=== PATIENT | male | born 1975 | race Caucasian/White ===

== ENCOUNTER 2019-06-26 20:07 | Emergency (ER) | payer BC ==
[2019-06-26] MEDS ORDERED: LORAZEPAM 2 MG/ML VIAL IV ONE (20:12)
[2019-06-26] MEDS ORDERED: 0.9 % SODIUM CHLORIDE 1000ML 1,000 ML IV SCH (20:15)
[2019-06-26 20:19] LABS: ABSOLUTE NEUTROPHIL COUNT 10.72; BASO % 0.3 % (0-6); EOS % 0.5 % (0-6); GRAN % 74.2 % (47-80); HEMATOCRIT 45.7 % (42.0-52.0); LYMPH % 16.5 % (16-45); MEAN CELL VOLUME 98.9 fl (81-97); MEAN CORPUSCULAR HEMOGLOBIN 32.5 pg (27-33); MEAN CORPUSCULAR HGB CONC 32.8 g/dl (32-36); MEAN PLATELET VOLUME 9.8 fl (7.4-10.4); MONO % 8.5 % (0-9); PLATELET COUNT 310 K/uL (130-400); RED BLOOD COUNT 4.62 M/uL (4.40-5.70); RED CELL DISTRIBUTION WIDTH 12.7 % (11.5-14.5); WHITE BLOOD COUNT W/O DIFF 14.5 K/uL (4.2-12.2)
--- NOTE | 2019-06-26 20:21 | Emergency Department Record ---
History of Present Illness - General Chief Complaint: Seizures Stated Complaint: SEIZURE Time Seen by Provider: 06/26/19 20:11 Source: Patient Mode of Arrival: Ambulatory Limitations: No limitations - History of Present Illness Initial Comments: 44 yo male presents to ED for evaluation following a witnessed seizure this evening. Patient's reports that the patient came home after work, ate several deserts (reports that he had not eaten for most of the day), sat down in a chair and while watching television began to "shake" with repetitive motions of all 4 limbs, eyes rolled back, and drooling was noted. Patient's reports confusion after the event, patient ran out of the home "looking for me". Patient denies history of seizures, but does report use of Wellbutrin for depression and anxiety symptoms. Patient reports he may have taken a 2nd dose of his Wellbutrin by accident this evening as well. MD Complaint: Seizure Onset/Timin -: Minutes(s) Description of Episode: Post-event confusion Witnessed: Yes - by bystander Seizure History: None Place: Home Possible Precipitating Event: Medication Associated Symptoms: Denies other symptoms Treatments Prior to Arrival: None - Dorcas Coma Scale Eye Response: (4) Open spontaneously Motor Response: (6) Obeys commands Verbal Response: (5) Oriented Mears Total: 15 - Related Data Home Medications Medication Instructions Recorded Confirmed Last Taken Bupropion HCl [Bupropion Xl] 1 tab PO DAILY 06/26/19 06/26/19 Unknown Buspirone HCl [Buspar] 2 tab PO TID PRN 06/26/19 06/26/19 Unknown Allergies Allergy/AdvReac Type Severity Reaction Status Date / Time Sulfa (Sulfonamide Allergy HIVES Verified 06/26/19 20:22 Antibiotics) Review of Systems Constitutional: Denies: Chills, Fever, Malaise, Night sweats Eyes: Denies: Eye discharge, Eye pain ENT: Denies: Congestion, Ear pain, Epistaxis Respiratory: Denies: Cough, Dyspnea Cardiovascular: Denies: Chest pain, Dyspnea on exertion Endocrine: Denies: Fatigue, Heat or cold intolerance Gastrointestinal: Denies: Abdominal pain, Nausea, Vomiting Genitourinary: Denies: Incontinence, Retention Musculoskeletal: Denies: Arthralgia, Back pain Skin: Denies: Bruising, Change in color Neurological: Reports: Seizure. Denies: Abnormal gait, Confusion, Headache Psychiatric: Reports: Anxiety Hematological/Lymphatic: Denies: Anemia, Blood Clots Physical Exam - General General Appearance: Alert, Oriented x3, Cooperative, Mild distress, Anxious Limitations: No limitations - Head Head exam: Atraumatic, Normocephalic, Normal inspection Head exam detail: negative: Abrasion, Contusion, Onwak's sign, General tenderness, Hematoma, Laceration - Eye Eye exam: Normal appearance. negative: Conjunctival injection, Periorbital swelling, Periorbital tenderness, Scleral icterus - ENT Ear exam: negative: Auricular hematoma, Auricular trauma Nasal Exam: negative: Active bleeding, Discharge, Dried blood, Foreign body Mouth exam: negative: Drooling, Laceration, Muffled voice, Tongue elevation - Neck Neck exam: Normal inspection. negative: Meningismus, Tenderness - Respiratory Respiratory exam: Normal lung sounds bilaterally. negative: Rales, Respiratory distress, Rhonchi, Stridor - Cardiovascular Cardiovascular Exam: Regular rate, Normal rhythm, Normal heart sounds - GI/Abdominal GI/Abdominal exam: Soft. negative: Rebound, Rigid, Tenderness - Rectal Rectal exam: Deferred - exam: Deferred - Extremities Extremities exam: Normal inspection. negative: Pedal edema, Tenderness - Back Back exam: Denies: CVA tenderness (R), CVA tenderness (L) - Neurological Neurological exam: Alert, Normal gait, Oriented X3 - Psychiatric Psychiatric exam: Normal affect, Normal mood - Skin Skin exam: Normal color. negative: Abrasion Type of lesion: negative: abrasion Course Vital Signs 06/26/19 20:12 Temperature 97.2 F L Pulse Rate [ 106 H Pulse Ox Probe] Respiratory 24 Rate Blood Pressure 158/102 [Left Arm] Pulse Ox 98 - Reevaluation(s) Reevaluation #1: 06/26/19 20:26 EKG: NSR 101 Normal axis, IVCD No acute ST-T wave changes are presents Reevaluation #2: 06/26/19 20:40 Laboratory studies were reviewed and appear grossly unremarkable for an acute process except for the following: WBC 14.5 LA 2.3 CPK: 312 Reevaluation #3: 06/26/19 21:07 CT Brain: No acute process Reevaluation #4: 06/26/19 21:25 UDS was reviewed and appear negative. Patient was updated on all results, recommended observation admission for reoccurrence of seizure as Wellbutrin was likely the etiology of his symptoms. Patient is declining admission at this time. Patient and his were counseled re: no driving for 6 months following a seizure. Will discharge home with Ativan 1 mg x 2 to take q8H to reduce the likelihood of seizure reoccurrence. Patient was counseled to call his PCP for follow-up and instructions on weaning his Wellbutrin. Patient appears stable for discharge at this time with his . Medical Decision Making - Lab Data Result diagrams: 06/26/19 20:10 06/26/19 20:10 Disposition Disposition: Discharge Clinical Impression: Seizure Disposition: Home, Self-Care Condition: (2) Stable Instructions: New-Onset Seizure in Adults (ED) Additional Instructions: Return to ED if your symptoms worsen or if you have any concerns. Ativan as directed. Follow-up with your family doctor in 1-3 days as directed for directions on weaning of your Wellbutrin. Forms: Patient Portal Access Time of Disposition: 21:29 Quality - Quality Measures Quality Measures: N/A - Blood Pressure Screening Does Patient Have Any of the Following: No Blood Pressure Classification: Pre-Hypertensive BP Reading Systolic Measurement: 135 Diastolic Measurement: 85 Screening for High Blood Pressure: < Pre-Hypertensive BP, F/U Documented > [G8950] Pre-Hypertensive Follow-up Interventions: Referral to alternative/primary care provider.
[2019-06-26 20:32] LABS: BLOOD UREA NITROGEN 7 mg/dL (6-20)
[2019-06-26 20:33] LABS: CREATININE 0.9 mg/dL (0.7-1.2); EST GLOMERULAR FILTRATION RATE > 60 mL/min; TOTAL PROTEIN 7.2 g/dL (6.6-8.7)
[2019-06-26 20:35] LABS: GLUCOSE,RANDOM 96 mg/dL (74-109)
[2019-06-26 20:38] LABS: ALB/GLOB RATIO 2.4 (1.1-1.8); ALBUMIN 5.1 g/dL (4.0-5.0); ALKALINE PHOSPHATASE 59 U/L (40-129); ALT/SGPT 23 U/L (<41); AST/SGOT 24 U/L (10.0-50.0); CREATINE PHOSPHOKINASE 312 U/L (39-308)
--- NOTE | 2019-06-26 21:06 | CT SCAN REPORT ---
EXAMINATION: CT Head without Contrast EXAM DATE: 06/26/2019 8:56 PM TECHNIQUE: Routine axial CT was acquired from skull base through vertex without contrast. Sagittal an d coronal isotropic reformatted images are reviewed. INDICATION: seizure. COMPARISON: None. ENCOUNTER: Not applicable HAND DOMINANCE: Unknown. FINDINGS: No intracranial fluid collection or hemorrhage. Brain attenuation and configuration are within normal limits. Age-appropriate CSF spaces. No significant extraneous finding. IMPRESSION: No acute infarct, mass or hemorrhage Dictated by: Darrian Garzon MD on 06/26/2019 9:03 PM. .
[2019-06-26 21:16] LABS: AMPHETAMINE SCREEN URINE NOT DETECTED; BARBITURATE SCREEN URINE NOT DETECTED; BENZODIAZEPINE SCREEN URINE NOT DETECTED; COCAINE SCREEN URINE NOT DETECTED; METHADONE SCREEN URINE NOT DETECTED; METHAMPHETAMINE SCREEN NOT DETECTED; OPIATE SCREEN URINE NOT DETECTED; OXYCODONE SCREEN URINE NOT DETECTED; PHENCYCLIDINE SCREEN URINE NOT DETECTED; PROPOXYPHENE SCREEN URINE NOT DETECTED; THC SCREEN URINE NOT DETECTED; TRICYCLIC ANTIDEPRESSANT SCRN NOT DETECTED
[2019-06-26] MEDS ORDERED: LORAZEPAM 0.5 MG TABLET PO ONE (21:24)
== END 2019-06-26 21:39 | disposition home or self-care (01) ==
LOC: ER 20:07
DX: T43.291A Poisoning by other antidepressants, accidental (unintentional), initial encounter (principal); R56.9 Unspecified convulsions; Y92.009 Unspecified place in unspecified non-institutional (private) residence as the place of occurrence of the external cause
CPT/HCPCS: 99284 ×2; 96374; 82550; 83605; 85025; 80053; 80305; 70450; 93005; 93010; J2060